=== PATIENT | male | born 1975 | race Caucasian/White ===

== ENCOUNTER 2018-12-22 15:56 | Emergency (ER) | payer MEDICAID ==
[~2018-12-22] VITALS: Ht 177.8 cm; Wt 71.7 kg
[2018-12-22 15:58] VITALS: Ht 177.8 cm; Wt 71.7 kg
[2018-12-22 16:32] LABS: BASOPHIL % 1.9 % (0-2); PLATELET COUNT 296 x10^3mcL (130-400)
[2018-12-22 16:34] LABS: RED CELL DISTRIBUTION WIDTH 14.7 % (11.5-14.5)
[2018-12-22 16:45] LABS: CALCIUM 8.2 mg/dL (8.5-10.1); CARBON DIOXIDE 21.6 mmol/L (21-32); CHLORIDE SERUM 100 mmol/L (98-107); CREATININE SERUM 0.8 mg/dL (0.7-1.3); GFR1 > 60 mL/min; GLUCOSE SERUM 214 mg/dL (74-106); POTASSIUM SERUM 4.1 mmol/L (3.5-5.1); SODIUM SERUM 139 mmol/L (136-145)
[2018-12-22 16:57] LABS: ALBUMIN 3.7 g/dL (3.4-5.0); ALKALINE PHOSPHATASE 156 U/L (46-116); ALT/SGPT 161 U/L (16-63); AST/SGOT 152 U/L (15-37); BILIRUBIN TOTAL 0.3 mg/dL (0.20-1.00); TOTAL PROTEIN, SERUM 7.5 g/dL (6.4-8.2)
[2018-12-22 18:45] VITALS: BP 136/98
== END 2018-12-22 18:25 | disposition home or self-care (01) ==
LOC: ED 15:56
PROVIDERS: Emergency Medicine
DX: F10.129 Alcohol abuse with intoxication, unspecified (principal); E11.65 Type 2 diabetes mellitus with hyperglycemia; I10 Essential (primary) hypertension; E78.00 Pure hypercholesterolemia, unspecified; K76.9 Liver disease, unspecified; Z88.0 Allergy status to penicillin
CPT/HCPCS: 82962; G0480; J7030